=== PATIENT | female | born 1985 ===

== ENCOUNTER → 2018-05-19 | Outpatient (CLI) | payer BC ==
[~2018-05-19] MED LIST: MOTRIN 600600 MG/TAB PO; PERCOCET 325 MG1 TA2 PO; PRENATAL MVI
== END ==
LOC: SUN.DIA 07:46
DX: O24.419 Gestational diabetes mellitus in pregnancy, unspecified control (principal); Z3A.25 25 weeks gestation of pregnancy
CPT/HCPCS: G0108

== ENCOUNTER → 2018-05-25 | Outpatient (CLI) | payer BC | LOC: SUN.DIA 11:27 | DX: O24.419 Gestational diabetes mellitus in pregnancy, unspecified control (principal); Z3A.29 29 weeks gestation of pregnancy | CPT/HCPCS: G0108 ==

== ENCOUNTER 2018-08-04 07:02 | Inpatient (IN) | payer BC ==
[2018-08-04] VITALS (50 sets, daily range): BP systolic 95–126; BP diastolic 53–82; PULSE 51–96; TEMP 97.8–98.6
[~2018-08-04] VITALS: Ht 165.1 cm; Wt 63.6 kg
--- NOTE | 2018-08-04 07:30 | NUR ---
0708- Pt arrives on unit ambulatory with for scheduled induction. Oriented to room. Pt into bathroom to change into gown and void. 0714- Pt into bed, EFM and TOCO on and tracing. VSS. IV start. Assessment completed. 0731- Pt up to void.
[2018-08-04] MEDS ORDERED: ASPIRIN 81M81 MG/TA2 PO (07:38)
[2018-08-04] MEDS ORDERED: LEVOXYL0.05 MG PO (07:39)
--- NOTE | 2018-08-04 07:40 | NUR ---
0780- Dr Corrales at bedside. Discusses plan of care, questions answered. SVE with AROM, no complications noted. Pt tolerated well.
[2018-08-04 08:17] LABS: BASO % 0.2 % (0.0-2.0); EOS # 0.1 (0.0-0.7); EOS % 0.7 % (0-4.0); GRAN # 5.6 (1.4-6.5); GRAN % 66.9 % (42.2-75.2); HEMOGLOBIN 10.8 g/dl (12.5-16.0); LYMPH # 1.9 (1.2-3.4); LYMPH % 22.7 % (20.0-51.0); MEAN CELL VOLUME 91 fl (80.0-100.0); MEAN CORPUSCULAR HEMOGLOBIN 31 pg (27.0-31.0); MEAN CORPUSCULAR HGB CONC 34 g/dl (33.0-37.0); MEAN PLATELET VOLUME 13.1 fl (7.4-10.4); MONO # 0.7 (0.1-0.6); MONO % 8.3 % (1.7-9.3); PLATELET COUNT 150 K/mm3 (130-400); REDCELL DISTRIBUTION WIDTH-CV 12.5 % (11.5-14.5)
[2018-08-04 08:25] LABS: HEMATOCRIT 31.9 % (37.0-47.0)
--- NOTE | 2018-08-04 12:45 | NUR ---
1243- Dr Corrales at bedside. Updated on Pt status, questions answered. No new orders at this time.
--- NOTE | 2018-08-04 16:15 | NUR ---
1558- IRENE Aguero at bedside for epidural placement. Pt assisted to sitting on side of bed. 1606- Single shot, see anesthesia record. 1609- Test dose completed. 1615- Pt assisted to semi-fowlers position. Pt tolerated well.
--- NOTE | 2018-08-04 16:55 | NUR ---
1655- Dr Corrales at bedside, SVE, Pt complete. Pt begins pushing with UCs. MD remains at bedside for 3-4 UCs, then remains on unit.
--- NOTE | 2018-08-04 18:05 | NUR ---
1804- Dr Corrales at bedside to evaluate pushing. Pt frustrated with progress, feels like she is not progressing towards delivery. discusses options and opinion on current status. Pt continues to push with UCs.
--- NOTE | 2018-08-04 18:15 | NUR ---
Bedside report recieved from BETTE Santo. Pt pushing with UC's with Gal AMOS. Pt very frustrated in progress and emotional. requested at bedside to discuss options. Vacuum discussed at this time. 1819: Pt requesting a break from pushing at this time to think about vacuum option. Pericare provided and pt assisted into high fowlers position. to stay on unit for delivery and reviews FHR strip. 1832: Pt requesting RN at bedside and wanting to continue pushing with UC wit RN at this time. Questions and concerns answered and education given. Pt resummes pushing with this RN. 1919: Pt moving vertex well. Pt continues to be very frustrated with progress and questions answered about vacuum multiple times by this RN and BETTE Santo. Pt requesting at bedside for vacuum placement. at nurses station and requested in pts room. Pt prepped for delivery. 1924: Vacuum applied by and pt starts pushing with UC. 1924: FHR deceleration noted down to 70bpm at lowest point lasting 80seconds. reviewing FHR strip and scalp stimulation completed. 1927: Vacuum assisted delivery of viable male by . Pitocin stopped per protocol. suctioned and stimulated by provider. Cord clamped X2 and cut by FOB and placed to mothers chest. Care of assumed by BETTE Don. 1930: Spontaneous delivery of intact placenta by . Pitocin restarted at 333mus/hr per protocol. Second degree laceration repaired by . Fundal message completed per provider, bleeding appropriate. Pericare provided, pads changed, pt repostioned in bed and ice pack applied. Plan of care and safety precautions explained to pt and who verbalize understanding. All questions and concerns answered. See doctor dications and anesthesia records.
[2018-08-05 03:30] VITALS: BP 109/60; PULSE 72; TEMP 98.3
[2018-08-05] MEDS ORDERED: MOTRIN 800800 MG/TAB PO (07:10)
[2018-08-05] MEDS ORDERED: PERCOCET 325 MG1 TA2 PO (07:11)
[2018-08-05 08:15] VITALS: BP 102/60; PULSE 59; TEMP 98.1
--- NOTE | 2018-08-05 10:24 | NUR ---
Initial visit; Mom thanked for offering congratulations and God's blessings for the of her son. [employer] Manager thanked Tasneem for choosing [facility].
[2018-08-05 16:55] VITALS: BP 116/61; PULSE 62; TEMP 97.8
[2018-08-05 20:30] VITALS: BP 121/57; PULSE 60; TEMP 98.9
[2018-08-06 08:20] VITALS: BP 106/59; PULSE 73; TEMP 98.7
== END 2018-08-06 11:45 | disposition home or self-care (01) | DRG 807 ==
LOC: LDR 07:02 → OB 23:49
PROVIDERS: ADMIT Obstetrics & Gynecology
PROC: 10D07Z6 Extraction of Products of Conception, Vacuum, Via Natural or Artificial Opening (ICD-10-PCS; principal; 2018-08-04)
PROC: 0KQM0ZZ Repair Perineum Muscle, Open Approach (ICD-10-PCS; 2018-08-04)
PROC: 10907ZC Drainage of Amniotic Fluid, Therapeutic from Products of Conception, Via Natural or Artificial Opening (ICD-10-PCS; 2018-08-04)
PROC: 3E033VJ Introduction of Other Hormone into Peripheral Vein, Percutaneous Approach (ICD-10-PCS; 2018-08-04)
DX: O24.420 Gestational diabetes mellitus in childbirth, diet controlled (principal); Z37.0 Single live birth; Z3A.39 39 weeks gestation of pregnancy; O99.284 Endocrine, nutritional and metabolic diseases complicating childbirth; E03.9 Hypothyroidism, unspecified; O99.344 Other mental disorders complicating childbirth; F41.9 Anxiety disorder, unspecified; O75.81 Maternal exhaustion complicating labor and delivery; O70.1 Second degree perineal laceration during delivery
CPT/HCPCS: J2590; J2791; J2795; J7120

== ENCOUNTER → 2019-06-09 | Outpatient (CLI) | payer BC ==
[~2019-06-09] MED LIST changes: +ASPIRIN 81M81 MG/TA2 PO; +LEVOXYL0.05 MG PO; +MOTRIN 800800 MG/TAB PO
== END ==
LOC: MC.RAD 06:54
DX: N63.20 Unspecified lump in the left breast, unspecified quadrant (principal)